=== PATIENT | female | born 1995 | race Two or more races ===

== ENCOUNTER 2022-04-20 04:49 | Emergency (ER) | payer OTHER ==
[~2022-04-20] VITALS: Ht 152.4 cm; Wt 81.8 kg
[2022-04-20 06:59] VITALS: BP 122/73
[2022-04-20] MEDS ORDERED: ACET-1080 PO (07:20)
[2022-04-20] MEDS ORDERED: AZIT500T66 PO (07:20)
== END 2022-04-20 07:29 | disposition home or self-care (01) ==
LOC: ER 04:49
DX: J03.90 Acute tonsillitis, unspecified (principal); Z79.2 Long term (current) use of antibiotics; Z79.899 Other long term (current) drug therapy